=== PATIENT | female | born 1955 | race Caucasian/White ===

== ENCOUNTER 2017-03-02 15:31 | Emergency (ER) | payer OTHER ==
--- NOTE | 2017-03-02 16:11 | ED CLINICAL REPORT ---
Clinical Report - Physicians/Mid Levels [facility] [address] [place] [address] 03/02/2017 15:36 Patient: HARJEET LLANES Time Seen: 1600 PM. Arrived- By private vehicle. Historian- patient. HISTORY OF PRESENT ILLNESS Chief Complaint: Chief Complaint- R index finger and Injury to right hand. The injury happened just prior to arrival. The patient sustained a laceration from a sharp edge. Occurred at home. Patient is experiencing mild pain. No other injury. REVIEW OF SYSTEMS The patient sustained a single laceration to the right index finger. No swelling or weakness. PAST HISTORY See nurses notes. The patient has not had a prior injury to the same area. Last tetanus immunization was more than 5 years ago. SOCIAL HISTORY Never smoker. No alcohol use or drug use. ADDITIONAL NOTES The nursing notes have been reviewed. PHYSICAL EXAM Vital Signs: 03/02/2017 15:54 BP: 119/70. HR: 72. RR: 16. O2 saturation: 95%. Temp: 98.4 F. Pain level now: 10/22. Have been reviewed and appear to be correct. Appearance: Alert. Oriented X3. No acute distress. Head: Head atraumatic. Neck: Normal inspection. CVS: Normal heart rate and rhythm. Respiratory: No respiratory distress. Extremities: Tip of right index finger: superficial 0.5 cm laceration. SEE LACERATION PROCEDURE NOTE #1. No erythema or tenderness. No subungual hematoma, nail avulsion, exposed bone or loss of the nail bed on the right index finger or tip amputation of the right index finger. Upper extremity otherwise negative. Neuro, Vascular and Tendons: Vascular status intact. Sensation intact. Motor intact. Neuro: Oriented X 3. PROGRESS AND PROCEDURES Laceration Repair: Location: right index finger. Length: 0.5cm. Complexity: simple (closed with tissue adhesive). Wound depth/shape- linear. Wound is clean. Distal neuro/vascular/tendon status normal. Prepped with chlorhexidine. Closure of superficial layer. Skin adhesive used. Post-procedure: she is stable and there are no complications. Bleeding is controlled and neuro-vascular status is intact distal to the wound. Dressing applied. Tetanus immunization given. Course of Care: Wound no longer bleeding by time assessed. Secured w/ skin glue. Steri strip. Since 5 years and was a metal object, will boost Tdap. Patient is stable. Patient counseled in person regarding the patient's condition, diagnosis, need for follow-up and wound care. Disposition: Discharged. Condition: stable. CLINICAL IMPRESSION Single superficial laceration to the left index finger.No foreign body present or left fingernail injury. INSTRUCTIONS Limit use of your hand today, until tomorrow. (Allow the sticky strip to fall off-trim end as curls up w/ nail clipper/scissor). Warnings: TETANUS: You were given a tetanus shot during your visit. Make a note for future reference. GENERAL WARNINGS: Return or contact your physician immediately if your condition worsens or changes unexpectedly, if not improving as expected, or if other problems arise. Your Current Medications: CONTINUE TAKING THE FOLLOWING MEDICATIONS: PROzac Oral. TraZODone HCl Oral. ZyrTEC Allergy Oral. Follow-up: Follow up with your doctor as needed. Understanding of the discharge instructions verbalized by patient. (Electronically signed by Cheryl Mckenzie A.R.N.P. 03/02/2017 18:08)
--- NOTE | 2017-03-02 16:11 | ED ORDER SUMMARY ---
..... Patient: HARJEET LLANES OrderSheet [facility] VisitID: [id number] [address] [place] [address] 61y, F Registration Date/Time: 03/02/2017 ORDER SHEET Weight: 86.1 kg (stated) Allergies: Sulfa Antibiotics GENERAL ORDERS: Dress Wounds (16:11 03/02/2017 SThom A.R.N.P.) (16:16 TBergldanyell) MEDICATION ORDERS: Ywqbmck-Tdhwmo-Hjdai Pertussis IM 0.5 mL (NOW) (16:10 03/02/2017 SThom A.R.N.P.) (Ack 16:17 Cristina R.N.) (16:20 Giovani R.N.) IV FLUIDS: ORDER SHEET NOTES: [Electronically signed by Yvonne Finnegan R.N. (16:45 03/02/2017)] [Electronically signed by Cheryl Mckenzie.R.N.P. (18:08 03/02/2017)] [Electronically locked/signed by Yvonne Finnegan R.N. (16:45 03/02/2017)]
--- NOTE | 2017-03-02 16:11 | ED NURSING NOTES ---
Clinical Report - Nurses [facility] [place] [address] 03/02/2017 15:36 Patient: HARJEET LLANES TRIAGE Acuity: LEVEL 4. Chief Complaint: INJURY TO LEFT HAND. INJURY TO THE LEFT INDEX FINGER. Alert. No acute distress. --15:56 Yvonne Finnegan R.N. 15:54 03/02/17. BP: 119/70. HR: 72. RR: 16. O2 saturation: 95%. Temp: 98.4 F (oral). Pain level now: 10/22. --15:56 Yvonne Finnegan R.N. Weight: 86.1 kg stated. Height/Length: 66 inches Per Patient. BMI: 30.7. --15:56 Yvonne Finnegan R.N. Medications PROzac Oral. --15:55 Yvonne Finnegan R.N. ZyrTEC Allergy Oral. --15:55 Yvonne Finnegan R.N. TraZODone HCl Oral. --15:55 Yvonne Finnegan R.N. Medication/allergy information source: the patient. --15:56 Yvonne Finnegan R.N. Allergies Sulfa Antibiotics. --15:55 Yvonne Finnegan R.N. History Arrived by private vehicle. Historian: patient. Unaccompanied. This occurred just prior to arrival. She sustained a laceration from a sharp edge. PAST MEDICAL HX: The patient is post-menopausal. SOCIAL HX: Never smoker. No alcohol use or drug use. FALL RISK ASSESSMENT: Fall risk assessment completed. No fall risk identified. NUTRITIONAL RISK ASSESSMENT: The nutritional risk assessment revealed no deficiencies. FUNCTIONAL ASSESSMENT: Functional assessment: no impairments noted. LEARNING NEEDS ASSESSMENT: The learning needs assessment revealed no barriers. SKIN INTEGRITY ASSESSMENT: Skin integrity risk assessment completed. No skin integrity risk identified. --15:56 Yvonne Finnegan R.N. Interventions ID band on patient. To treatment room. --15:56 Yvonne Finnegan R.N. NURSING PROGRESS NOTES Patient identifiers checked. Checked patient name and birthdate. Call light placed in reach. Side rails up x 1. Bed placed in lowest position. Brakes of bed on. Patient ready for evaluation- chart flagged and PERSONNEL SPECIALIST notified. --15:57 Yvonne Finnegan R.N. 16:15 03/02/2017 DEHJXNK-NUAVOW-JOFTP PERTUSSIS IM 0.5 mL given. (Lot#: [id number], expiration date: 07/20/2018, Supervisor Sewing Room: sanofi pasteur). Given in the right deltoid. Allergies verified and confirmed 5 rights. Vaccine information statement provided to the patient. --16:20 Yessenia Sheffield R.N. DISPOSITION / DISCHARGE Departure time: 16:25 Mar 02 2017. Condition at departure: improved and stable. No learning barriers present. Discharge instructions provided and reviewed with the patient. Patient verbalized understanding. Written instructions provided in Korean. The patient was discharged by the nurse practitioner. She was discharged home. She left the Emergency Department ambulatory and via private vehicle. Patient driving. --16:45 Yvonne Finnegan R.N. Locked/Released at 03/02/2017 16:45 by Yvonne Finnegan R.N.
--- NOTE | 2017-03-02 16:11 | ED NURSING NOTES ---
Clinical Report - Nurses [facility] [place] [address] 03/02/2017 15:36 Patient: HARJEET LLANES TRIAGE Acuity: LEVEL 4. Chief Complaint: INJURY TO LEFT HAND. INJURY TO THE LEFT INDEX FINGER. Alert. No acute distress. --15:56 Yvonne Finnegan R.N. 15:54 03/02/17. BP: 119/70. HR: 72. RR: 16. O2 saturation: 95%. Temp: 98.4 F (oral). Pain level now: 10/22. --15:56 Yvonne Finnegan R.N. Weight: 86.1 kg stated. Height/Length: 66 inches Per Patient. BMI: 30.7. --15:56 Yvonne Finnegan R.N. Medications PROzac Oral. --15:55 Yvonne Finnegan R.N. ZyrTEC Allergy Oral. --15:55 Yvonne Finnegan R.N. TraZODone HCl Oral. --15:55 Yvonne Finnegan R.N. Medication/allergy information source: the patient. --15:56 Yvonne Finnegan R.N. Allergies Sulfa Antibiotics. --15:55 Yvonne Finnegan R.N. History Arrived by private vehicle. Historian: patient. Unaccompanied. This occurred just prior to arrival. She sustained a laceration from a sharp edge. PAST MEDICAL HX: The patient is post-menopausal. SOCIAL HX: Never smoker. No alcohol use or drug use. FALL RISK ASSESSMENT: Fall risk assessment completed. No fall risk identified. NUTRITIONAL RISK ASSESSMENT: The nutritional risk assessment revealed no deficiencies. FUNCTIONAL ASSESSMENT: Functional assessment: no impairments noted. LEARNING NEEDS ASSESSMENT: The learning needs assessment revealed no barriers. SKIN INTEGRITY ASSESSMENT: Skin integrity risk assessment completed. No skin integrity risk identified. --15:56 Yvonne Finnegan R.N. Interventions ID band on patient. To treatment room. --15:56 Yvonne Finnegan R.N. NURSING PROGRESS NOTES Patient identifiers checked. Checked patient name and birthdate. Call light placed in reach. Side rails up x 1. Bed placed in lowest position. Brakes of bed on. Patient ready for evaluation- chart flagged and LDR NURSE notified. --15:57 Yvonne Finnegan R.N. 16:15 03/02/2017 BHNTOCM-ONQYLJ-YALNM PERTUSSIS IM 0.5 mL given. (Lot#: [id number], expiration date: 07/20/2018, Food Service Cashier: sanofi pasteur). Given in the right deltoid. Allergies verified and confirmed 5 rights. Vaccine information statement provided to the patient. --16:20 Yessenia Sheffield R.N. DISPOSITION / DISCHARGE Departure time: 16:25 Mar 02 2017. Condition at departure: improved and stable. No learning barriers present. Discharge instructions provided and reviewed with the patient. Patient verbalized understanding. Written instructions provided in Georgian. The patient was discharged by the nurse practitioner. She was discharged home. She left the Emergency Department ambulatory and via private vehicle. Patient driving. --16:45 Yvonne Finnegan R.N. Locked/Released at 03/02/2017 16:45 by Yvonne Finnegan R.N.
--- NOTE | 2017-03-02 16:11 | ED CLINICAL REPORT ---
Clinical Report - Physicians/Mid Levels [facility] [address] [place] [address] 03/02/2017 15:36 Patient: HARJEET LLANES Time Seen: 1600 PM. Arrived- By private vehicle. Historian- patient. HISTORY OF PRESENT ILLNESS Chief Complaint: Chief Complaint- R index finger and Injury to right hand. The injury happened just prior to arrival. The patient sustained a laceration from a sharp edge. Occurred at home. Patient is experiencing mild pain. No other injury. REVIEW OF SYSTEMS The patient sustained a single laceration to the right index finger. No swelling or weakness. PAST HISTORY See nurses notes. The patient has not had a prior injury to the same area. Last tetanus immunization was more than 5 years ago. SOCIAL HISTORY Never smoker. No alcohol use or drug use. ADDITIONAL NOTES The nursing notes have been reviewed. PHYSICAL EXAM Vital Signs: 03/02/2017 15:54 BP: 119/70. HR: 72. RR: 16. O2 saturation: 95%. Temp: 98.4 F. Pain level now: 10/22. Have been reviewed and appear to be correct. Appearance: Alert. Oriented X3. No acute distress. Head: Head atraumatic. Neck: Normal inspection. CVS: Normal heart rate and rhythm. Respiratory: No respiratory distress. Extremities: Tip of right index finger: superficial 0.5 cm laceration. SEE LACERATION PROCEDURE NOTE #1. No erythema or tenderness. No subungual hematoma, nail avulsion, exposed bone or loss of the nail bed on the right index finger or tip amputation of the right index finger. Upper extremity otherwise negative. Neuro, Vascular and Tendons: Vascular status intact. Sensation intact. Motor intact. Neuro: Oriented X 3. PROGRESS AND PROCEDURES Laceration Repair: Location: right index finger. Length: 0.5cm. Complexity: simple (closed with tissue adhesive). Wound depth/shape- linear. Wound is clean. Distal neuro/vascular/tendon status normal. Prepped with chlorhexidine. Closure of superficial layer. Skin adhesive used. Post-procedure: she is stable and there are no complications. Bleeding is controlled and neuro-vascular status is intact distal to the wound. Dressing applied. Tetanus immunization given. Course of Care: Wound no longer bleeding by time assessed. Secured w/ skin glue. Steri strip. Since 5 years and was a metal object, will boost Tdap. Patient is stable. Patient counseled in person regarding the patient's condition, diagnosis, need for follow-up and wound care. Disposition: Discharged. Condition: stable. CLINICAL IMPRESSION Single superficial laceration to the left index finger.No foreign body present or left fingernail injury. INSTRUCTIONS Limit use of your hand today, until tomorrow. (Allow the sticky strip to fall off-trim end as curls up w/ nail clipper/scissor). Warnings: TETANUS: You were given a tetanus shot during your visit. Make a note for future reference. GENERAL WARNINGS: Return or contact your physician immediately if your condition worsens or changes unexpectedly, if not improving as expected, or if other problems arise. Your Current Medications: CONTINUE TAKING THE FOLLOWING MEDICATIONS: PROzac Oral. TraZODone HCl Oral. ZyrTEC Allergy Oral. Follow-up: Follow up with your doctor as needed. Understanding of the discharge instructions verbalized by patient. (Electronically signed by Cheryl Mckenzie A.R.N.P. 03/02/2017 18:08)
--- NOTE | 2017-03-02 16:11 | ED ORDER SUMMARY ---
..... Patient: HARJEET LLANES OrderSheet [facility] VisitID: [id number] [address] [place] [address] 61y, F Registration Date/Time: 03/02/2017 ORDER SHEET Weight: 86.1 kg (stated) Allergies: Sulfa Antibiotics GENERAL ORDERS: Dress Wounds (16:11 03/02/2017 SThom A.R.N.P.) (16:16 TBergldanyell) MEDICATION ORDERS: Keehlog-Rxdbwj-Kpzyh Pertussis IM 0.5 mL (NOW) (16:10 03/02/2017 SThom A.R.N.P.) (Ack 16:17 Cristina R.N.) (16:20 Giovani R.N.) IV FLUIDS: ORDER SHEET NOTES: [Electronically signed by Yvonne Finnegan R.N. (16:45 03/02/2017)] [Electronically signed by Cheryl Mckenzie.R.N.P. (18:08 03/02/2017)] [Electronically locked/signed by Yvonne Finnegan R.N. (16:45 03/02/2017)]
--- NOTE | 2017-03-02 18:08 | ED MED RECONCILIATION SUMMARY ---
Patient: HARJEET LLANES Medication Reconciliation Report [facility] VisitID: [id number] [address] [place] [address] 61y, F Registration Date/Time: 03/02/2017 Weight: 86.1 kg Height/Length: 66 in. BMI: 30.7 ALLERGIES: Sulfa Antibiotics The patient's Home Medications are listed below: CONTINUE TAKING THE FOLLOWING MEDICATIONS: PROzac Oral TraZODone HCl Oral ZyrTEC Allergy Oral The source(s) of the original Home Medication information: patient The following Medications were given to the patient in the Emergency Department: UFIEJCO-EUWUHS-ZPAIN PERTUSSIS [IM] IM 0.5 mL, administered: 03/02/2017 4:15:00 PM The following Medications were prescribed to the patient: None.
--- NOTE | 2017-03-02 18:08 | ED DISCHARGE INSTRUCTIONS ---
Patient: HARJEET LLANES General Instructions [facility] VisitID: [id number] [place] [address] 61y, F Registration Date/Time: 03/02/2017 Single superficial laceration to the left index finger.No foreign body present or left fingernail injury. INSTRUCTIONS Limit use of your hand today, until tomorrow. (Allow the sticky strip to fall off-trim end as curls up w/ nail clipper/scissor). Warnings: TETANUS: You were given a tetanus shot during your visit. Make a note for future reference. GENERAL WARNINGS: Return or contact your physician immediately if your condition worsens or changes unexpectedly, if not improving as expected, or if other problems arise. Your Current Medications: CONTINUE TAKING THE FOLLOWING MEDICATIONS: PROzac Oral. TraZODone HCl Oral. ZyrTEC Allergy Oral. Follow-up: Follow up with your doctor as needed. Understanding of the discharge instructions verbalized by patient. ADDITIONAL INFORMATION Laceration, Extremity (Sutures, [place], Or Tape) A laceration is a cut through the skin. This will usually require stitches (sutures) or jemma if it is deep. Minor cuts may be treated with surgical tape closures. Home care The following guidelines will help you care for your laceration at home: Keep the wound clean and dry. If a bandage was applied and it becomes wet or dirty, replace it. Otherwise, leave it in place for the first 24 hours, then change it once a day or as directed. If stitches or jemma were used, clean the wound daily: After removing the bandage, wash the area with soap and water. Use a wet cotton swab to loosen and remove any blood or crust that forms. After cleaning, keep the wound clean and dry. Talk with your doctor before applying any antibiotic ointment to the wound. Reapply the bandage. You may remove the bandage to shower as usual after the first 24 hours, but do not soak the area in water (no swimming) until the stitches or jemma are removed. If surgical tape closures were used, keep the area clean and dry. If it becomes wet, blot it dry with a towel. The doctor may prescribe an antibiotic cream or ointment to prevent infection. Do not stop taking this medication until you have finished the prescribed course or the doctor tells you to stop. The doctor may also prescribe medications for pain. Follow the doctors instructions for taking these medications. If you have chronic liver or kidney disease or ever had a stomach ulcer or GI bleeding, talk with your doctor before using these medicines. Follow-up care Follow up with your health care provider. Most skin wounds heal within ten days. However, an infection may sometimes occur despite proper treatment. Therefore, check the wound daily for the signs of infection listed below. Stitches and jemma should be removed within 714 days. If surgical tape closures were used, you may remove them after 10 days, if they have not fallen off by then. Notify your doctor if you notice persistent numbness or weakness in the injured extremity. (Note:A radiologist will review any X-rays that were taken. We will notify you of any new findings that may affect your care.) When to seek medical care Get prompt medical attention if any of these occur: Increasing pain in the wound Redness, swelling, or pus coming from the wound Fever of 100.4F (38C) or higher, or as directed by your health care provider If stitches or jemma come apart or fall out before your next appointment If the surgical tape closures fall off within seven days, or the wound edges re-open Bleeding not controlled by direct pressure Laceration(Skin Glue) A laceration is a cut through the skin. You have a laceration that has been closed with a type of skin glue. Home Care Medications: Acetaminophen (Tylenol) or ibuprofen (Motrin, Advil) may be taken for pain, unless another pain medicine was prescribed. NOTE: If you have chronic liver or kidney disease or ever had a stomach ulcer or GI bleeding, talk with your doctor before using these medications. General Care: Keep the wound clean and dry. You may shower or bathe as usual, but do not use soaps, lotions, or ointments on the wound area. Do not scrub the wound. After bathing, pat the wound dry with a soft towel. If a bandage was applied and it becomes wet or dirty, replace it. Otherwise, change the bandage every 24 hours. Do not scratch, rub, or pick at the film. Do not place tape directly over the film. Do not apply liquids (such as peroxide), ointments, or creams to the wound while the film is in place. Most skin wounds heal without problems. However, an infection sometimes occurs despite proper treatment. Therefore, watch for the signs of infection listed below. Follow Up as directed by the doctor or our staff. The skin glue film will fall off naturally in 5 to 10 days. Get Prompt Medical Attention if any of the following occur: Signs of infection: Fever of 100.4F (38C) or higher, or as directed by your healthcare provider Increasing pain in the wound Increasing redness or swelling Pus coming from the wound Wound bleeds more than a small amount or bleeding doesnt stop Wound edges come apart You feel numbness or weakness in the wound area that doesnt go away Diphtheria Toxoid Adsorbed, Pertussis Vaccine, Acellular (Adsorbed), Tetanus Toxoid, Adsorbed Suspension for injection What is this medicine? DIPHTHERIA and TETANUS TOXOIDS; PERTUSSIS VACCINE (dif THEER ee uh and TET n us TOK soids; per TUS iss gurinderk SEEN) is used to prevent diphtheria, tetanus, and pertussis infections. How should I use this medicine? This vaccine is for injection into a muscle. It is given by a health direct care professional. A copy of Vaccine Information Statements will be given before each vaccination. Read this sheet carefully each time. The sheet may change frequently. Talk to your skip loader regarding the use of this vaccine in children. While the DTP vaccine may be given to children ages 6 weeks to 7 years and the Tdap vaccine may be given to children at least 10 years old, precautions do apply. What side effects may I notice from receiving this medicine? Side effects that you should report to your doctor or health direct care professional as soon as possible: allergic reactions like skin rash, itching or hives, swelling of the face, lips, or tongue breathing problems fever of 103 degrees F or more flu-like symptoms inconsolable crying infection pain, tingling, numbness in the hands or feet seizures swelling of arm or leg that was injected unusually weak or tired Side effects that usually do not require immediate medical attention (report these side effects to your doctor or health direct care professional if they continue or are bothersome): fussy, irritable loss of appetite fever of 102 degrees F or less pain, tenderness, redness, swelling, or a 'knot' at site where injected vomiting What may interact with this medicine? immune globulin medicines that suppress your immune function like adalimumab, anakinra, infliximab medicines to treat cancer medicines that treat or prevent blood clots like warfarin, enoxaparin, and dalteparin steroid medicines like prednisone or cortisone What if I miss a dose? It is important not to miss your dose. Call your doctor or health direct care professional if you are unable to keep an appointment. Where should I keep my medicine? This drug is given in a hospital or clinic and will not be stored at home. What should I tell my health care provider before I take this medicine? They need to know if you have any of these conditions: blood disorders like hemophilia fever or infection immune system problems neurologic disease seizures an unusual or allergic reaction to vaccines, thimerosal, latex, other medicines, foods, dyes, or preservatives or trying to get breast-feeding What should I watch for while using this medicine? See your health care provider for all shots of this vaccine as directed. To have protection from infection, you must have 3 shots of this vaccine plus boosters as needed. Tell your doctor right away if you have any serious or unusual side effects after getting this vaccine. You have been given the following additional information: Laceration, Extrem (Suture, Staple, Or Tape) Laceration, Extremity (Skin Glue) Diphtheria Toxoid Adsorbed, Pertussis Vaccine, Acellular (Adsorbed), Tetanus Toxoid, Adsorbed Suspension for injection Limit use of your hand today, until tomorrow. (Electronically signed by Cheryl Mckenzie A.R.N.P. 03/02/2017 18:08)
--- NOTE | 2017-03-02 18:08 | ED MAR SUMMARY ---
..... Medication Administration Record [facility] [address] [place] [address] Patient: HARJEET LLANES Visit ID: [id number] 61y, F Weight: 86.1 kg Height/Length: 66 in BMI: 30.7 ALLERGIES: Sulfa Antibiotics Given 16:15 03/02/2017 Yessenia Sheffield RDonald Medication Administered: DDOREKM-VAAUYB-EUGHM PERTUSSIS [IM], Dose: 0.5 mL IM. Medication Ordered: Ypnogut-Snecnm-Cysew Pertussis IM 0.5 mL (NOW).
--- NOTE | 2017-03-02 18:08 | ED DISCHARGE INSTRUCTIONS ---
Patient: HARJEET LLANES General Instructions [facility] VisitID: [id number] [place] [address] 61y, F Registration Date/Time: 03/02/2017 Single superficial laceration to the left index finger.No foreign body present or left fingernail injury. INSTRUCTIONS Limit use of your hand today, until tomorrow. (Allow the sticky strip to fall off-trim end as curls up w/ nail clipper/scissor). Warnings: TETANUS: You were given a tetanus shot during your visit. Make a note for future reference. GENERAL WARNINGS: Return or contact your physician immediately if your condition worsens or changes unexpectedly, if not improving as expected, or if other problems arise. Your Current Medications: CONTINUE TAKING THE FOLLOWING MEDICATIONS: PROzac Oral. TraZODone HCl Oral. ZyrTEC Allergy Oral. Follow-up: Follow up with your doctor as needed. Understanding of the discharge instructions verbalized by patient. ADDITIONAL INFORMATION Laceration, Extremity (Sutures, [place], Or Tape) A laceration is a cut through the skin. This will usually require stitches (sutures) or jemma if it is deep. Minor cuts may be treated with surgical tape closures. Home care The following guidelines will help you care for your laceration at home: Keep the wound clean and dry. If a bandage was applied and it becomes wet or dirty, replace it. Otherwise, leave it in place for the first 24 hours, then change it once a day or as directed. If stitches or jemma were used, clean the wound daily: After removing the bandage, wash the area with soap and water. Use a wet cotton swab to loosen and remove any blood or crust that forms. After cleaning, keep the wound clean and dry. Talk with your doctor before applying any antibiotic ointment to the wound. Reapply the bandage. You may remove the bandage to shower as usual after the first 24 hours, but do not soak the area in water (no swimming) until the stitches or jemma are removed. If surgical tape closures were used, keep the area clean and dry. If it becomes wet, blot it dry with a towel. The doctor may prescribe an antibiotic cream or ointment to prevent infection. Do not stop taking this medication until you have finished the prescribed course or the doctor tells you to stop. The doctor may also prescribe medications for pain. Follow the doctors instructions for taking these medications. If you have chronic liver or kidney disease or ever had a stomach ulcer or GI bleeding, talk with your doctor before using these medicines. Follow-up care Follow up with your health care provider. Most skin wounds heal within ten days. However, an infection may sometimes occur despite proper treatment. Therefore, check the wound daily for the signs of infection listed below. Stitches and jemma should be removed within 714 days. If surgical tape closures were used, you may remove them after 10 days, if they have not fallen off by then. Notify your doctor if you notice persistent numbness or weakness in the injured extremity. (Note:A radiologist will review any X-rays that were taken. We will notify you of any new findings that may affect your care.) When to seek medical care Get prompt medical attention if any of these occur: Increasing pain in the wound Redness, swelling, or pus coming from the wound Fever of 100.4F (38C) or higher, or as directed by your health care provider If stitches or jemma come apart or fall out before your next appointment If the surgical tape closures fall off within seven days, or the wound edges re-open Bleeding not controlled by direct pressure Laceration(Skin Glue) A laceration is a cut through the skin. You have a laceration that has been closed with a type of skin glue. Home Care Medications: Acetaminophen (Tylenol) or ibuprofen (Motrin, Advil) may be taken for pain, unless another pain medicine was prescribed. NOTE: If you have chronic liver or kidney disease or ever had a stomach ulcer or GI bleeding, talk with your doctor before using these medications. General Care: Keep the wound clean and dry. You may shower or bathe as usual, but do not use soaps, lotions, or ointments on the wound area. Do not scrub the wound. After bathing, pat the wound dry with a soft towel. If a bandage was applied and it becomes wet or dirty, replace it. Otherwise, change the bandage every 24 hours. Do not scratch, rub, or pick at the film. Do not place tape directly over the film. Do not apply liquids (such as peroxide), ointments, or creams to the wound while the film is in place. Most skin wounds heal without problems. However, an infection sometimes occurs despite proper treatment. Therefore, watch for the signs of infection listed below. Follow Up as directed by the doctor or our staff. The skin glue film will fall off naturally in 5 to 10 days. Get Prompt Medical Attention if any of the following occur: Signs of infection: Fever of 100.4F (38C) or higher, or as directed by your healthcare provider Increasing pain in the wound Increasing redness or swelling Pus coming from the wound Wound bleeds more than a small amount or bleeding doesnt stop Wound edges come apart You feel numbness or weakness in the wound area that doesnt go away Diphtheria Toxoid Adsorbed, Pertussis Vaccine, Acellular (Adsorbed), Tetanus Toxoid, Adsorbed Suspension for injection What is this medicine? DIPHTHERIA and TETANUS TOXOIDS; PERTUSSIS VACCINE (dif THEER ee uh and TET n us TOK soids; per TUS iss gurinderk SEEN) is used to prevent diphtheria, tetanus, and pertussis infections. How should I use this medicine? This vaccine is for injection into a muscle. It is given by a health health care specialist. A copy of Vaccine Information Statements will be given before each vaccination. Read this sheet carefully each time. The sheet may change frequently. Talk to your stonecutter assistant regarding the use of this vaccine in children. While the DTP vaccine may be given to children ages 6 weeks to 7 years and the Tdap vaccine may be given to children at least 10 years old, precautions do apply. What side effects may I notice from receiving this medicine? Side effects that you should report to your doctor or health health care specialist as soon as possible: allergic reactions like skin rash, itching or hives, swelling of the face, lips, or tongue breathing problems fever of 103 degrees F or more flu-like symptoms inconsolable crying infection pain, tingling, numbness in the hands or feet seizures swelling of arm or leg that was injected unusually weak or tired Side effects that usually do not require immediate medical attention (report these side effects to your doctor or health health care specialist if they continue or are bothersome): fussy, irritable loss of appetite fever of 102 degrees F or less pain, tenderness, redness, swelling, or a 'knot' at site where injected vomiting What may interact with this medicine? immune globulin medicines that suppress your immune function like adalimumab, anakinra, infliximab medicines to treat cancer medicines that treat or prevent blood clots like warfarin, enoxaparin, and dalteparin steroid medicines like prednisone or cortisone What if I miss a dose? It is important not to miss your dose. Call your doctor or health health care specialist if you are unable to keep an appointment. Where should I keep my medicine? This drug is given in a hospital or clinic and will not be stored at home. What should I tell my health care provider before I take this medicine? They need to know if you have any of these conditions: blood disorders like hemophilia fever or infection immune system problems neurologic disease seizures an unusual or allergic reaction to vaccines, thimerosal, latex, other medicines, foods, dyes, or preservatives or trying to get breast-feeding What should I watch for while using this medicine? See your health care provider for all shots of this vaccine as directed. To have protection from infection, you must have 3 shots of this vaccine plus boosters as needed. Tell your doctor right away if you have any serious or unusual side effects after getting this vaccine. You have been given the following additional information: Laceration, Extrem (Suture, Staple, Or Tape) Laceration, Extremity (Skin Glue) Diphtheria Toxoid Adsorbed, Pertussis Vaccine, Acellular (Adsorbed), Tetanus Toxoid, Adsorbed Suspension for injection Limit use of your hand today, until tomorrow. (Electronically signed by Cheryl Mckenzie A.R.N.P. 03/02/2017 18:08)
--- NOTE | 2017-03-02 18:08 | ED MAR SUMMARY ---
..... Medication Administration Record [facility] [address] [place] [address] Patient: HARJEET LLANES Visit ID: [id number] 61y, F Weight: 86.1 kg Height/Length: 66 in BMI: 30.7 ALLERGIES: Sulfa Antibiotics Given 16:15 03/02/2017 Yessenia Sheffield RDonald Medication Administered: [id number] PERTUSSIS [IM], Dose: 0.5 mL IM. Medication Ordered: [id number] Pertussis IM 0.5 mL (NOW).
--- NOTE | 2017-03-02 18:08 | ED MED RECONCILIATION SUMMARY ---
Patient: HARJEET LLANES Medication Reconciliation Report [facility] VisitID: [id number] [address] [place] [address] 61y, F Registration Date/Time: 03/02/2017 Weight: 86.1 kg Height/Length: 66 in. BMI: 30.7 ALLERGIES: Sulfa Antibiotics The patient's Home Medications are listed below: CONTINUE TAKING THE FOLLOWING MEDICATIONS: PROzac Oral TraZODone HCl Oral ZyrTEC Allergy Oral The source(s) of the original Home Medication information: patient The following Medications were given to the patient in the Emergency Department: [id number] PERTUSSIS [IM] IM 0.5 mL, administered: 03/02/2017 4:15:00 PM The following Medications were prescribed to the patient: None.
== END 2017-03-02 16:25 | disposition home or self-care (01) ==
LOC: ED SRH 15:31
DX: S61.210A Laceration without foreign body of right index finger without damage to nail, initial encounter (principal); W26.9XXA Contact with unspecified sharp object(s), initial encounter; Y93.9 Activity, unspecified; Y99.9 Unspecified external cause status; Y92.009 Unspecified place in unspecified non-institutional (private) residence as the place of occurrence of the external cause; Z23 Encounter for immunization